=== PATIENT | male | born 1985 | race Caucasian/White ===

== ENCOUNTER 2018-06-27 17:23 | Emergency (ER) | payer OTHER ==
[2018-06-27 17:30] VITALS: BP 110/70
--- NOTE | 2018-06-27 17:39 | PHYS DOC ---
Adult General Chief Complaint Chief Complaint: FLU SYMPTOM HPI HPI Patient is a 33-year-old male who presents with complaint of body aches, chills, and headache. Patient states his symptoms that started earlier today. He also indicates that he has had some loose stools but has had no nausea or vomiting. He denies any abdominal pain. Patient states that he had taken some ibuprofen just before arrival. (DURGA WOODS Jr. DO) Review of Systems Review of Systems Constitutional: Positive chills [] HENT: Positive congestion without sore throat [] Respiratory: Denies cough or shortness of breath [] Cardiovascular: No additional information not addressed in HPI [] GI: Denies abdominal pain, nausea or vomiting. Denies diarrhea [] : Denies dysuria or hematuria [] Musculoskeletal: Complains of body aches/pain [] Integument: Denies rash or skin lesions [] Neurologic: Complains of headache without focal weakness or sensory changes [] (DURGA WOODS Jr. DO) Physical Exam Physical Exam Constitutional: Well developed, well nourished, no acute distress, non-toxic appearance. [] HENT: Normocephalic, atraumatic, bilateral external ears normal, oropharynx moist, no oral exudates, nose normal. [] Neck: Normal range of motion, no tenderness, supple. [] Cardiovascular: Regular rate and rhythm[] Lungs & Thorax: Bilateral breath sounds clear to auscultation [] Skin: Warm, dry, no erythema, no rash. [] Neurologic: Alert and oriented X 3, no focal deficits noted. [] (DURGA WOODS Jr. DO) EKG EKG [] (DURGA WOODS Jr. DO) Radiology/Procedures Radiology/Procedures [] (DURGA WOODS Jr. DO) Course & Med Decision Making Course & Med Decision Making Pertinent Labs and Imaging studies reviewed. (See chart for details) Patient moved to room upon arrival was evaluated by your medical staff after which an influenza test was obtained. Initially patient had made no mention of IV fluids and had specifically denied any nausea or vomiting but had made a comment to one of the staff members that he would like some IV fluids. I did review this with him and he states that he is feeling excessively thirsty and feels like he just not keeping enough fluids down. At this point, an IV was established and blood work was drawn. Patient given a liter of normal saline. Patient is being signed out to the oncoming ER physician at 6:00 PM, Dr. Armstrong. (DURGA WOODS Jr., DO) Course & Med Decision Making Pt. feeling better after IV fluids. Discharged home with Zofran, Tylenol and Ibuprofen. Pt. return if any concerns. Follow up with primary. Impression: 1. Viral Syndrome (DUSTIN ARMSTRONG MD) Dragon Disclaimer Dragon Disclaimer This electronic medical record was generated, in whole or in part, using a voice recognition dictation system. (DURGA WOODS Jr., DO) Departure Departure: Referrals: BERYL RIVERA (PCP) Scripts Acetaminophen (ACETAMINOPHEN) 500 Mg Tablet 1000 MG PO QIDPRN PRN for fever or discomfort, #120 TAB Prov: DUSTIN ARMSTRONG MD 06/27/18 Ibuprofen (IBUPROFEN) 800 Mg Tablet 800 MG PO tidprn PRN for fever and or discomfort, #120 TAB Prov: DUSTIN ARMSTRONG MD 06/27/18 Ondansetron Hcl (ZOFRAN) 8 Mg Tablet 8 MG PO QIDPRN PRN for NAUSEA/VOMITING, #30 BOTTLE Prov: DUSTIN ARMSTRONG MD 06/27/18 DURGA WOODS Jr., DO June 27, 2018 17:39 DUSTIN ARMSTRONG MD June 27, 2018 19:11
[2018-06-27 18:04] LABS: INFLUENZA A PATIENT NEGATIVE (NEGATIVE); INFLUENZA B PATIENT NEGATIVE (NEGATIVE)
[2018-06-27] MEDS ORDERED: IV NORMAL SALINE 1,000ML 1,000 ML IV ONE (18:15)
[2018-06-27 18:39] LABS: BASO % 0 % (0-3); EOS % 0 % (0-3); HEMATOCRIT 45.7 % (39.0-53.0); HEMOGLOBIN 16.2 g/dL (13.0-17.5); LYMPH # 0.4 x10^3/uL (1.0-4.8); LYMPH % 5 % (24-48); MEAN CORPUSCULAR HEMOGLOBIN 30 pg (25-35); MEAN CORPUSCULAR HGB CONC 36 g/dL (31-37); MEAN CORPUSCULAR VOLUME 84 fL (79-100); MONO # 0.4 x10^3/uL (0.0-1.1); MONO % 5 % (0-9); NEUT # 6.6 x10^3uL (1.8-7.7); NEUT % 89 % (31-73); PLATELET COUNT 186 x10^3/uL (140-400); RED BLOOD COUNT 5.44 x10^6/uL (4.30-5.70); RED CELL DISTRIBUTION WIDTH 12.9 % (11.5-14.5); WHITE BLOOD COUNT 7.5 x10^3/uL (4.0-11.0)
[2018-06-27 18:40] LABS: AMPHETAMINE/METHAMPHETAMINE NEG (NEG); BARBITURATES NEG (NEG); BENZODIAZEPINES NEG (NEG); CANNABINOIDS NEG (NEG); COCAINE NEG (NEG); METHADONE NEG (NEG); OPIATES NEG (NEG); PHENCYCLIDINE NEG (NEG)
[2018-06-27 18:45] LABS: CLARITY,URINE HAZY; COLOR,URINE AMBER
[2018-06-27 18:46] LABS: BACTERIA,URINE 0 /HPF (0-FEW); BILIRUBIN,URINE NEG (NEG); GLUCOSE,URINE NEG (NEG); NITRITE,URINE NEG (NEG); SQUAMOUS EPITHELIAL CELL,UR OCC /LPF; UROBILINOGEN,URINE 0.2 mg/dL (0.2 mg/dL); WBC,URINE 0 /HPF (0-4)
[2018-06-27 18:53] LABS: ALBUMIN 4.2 g/dL (3.4-5.0); ALBUMIN/GLOBULIN RATIO 1.4 (1.0-1.7); CREATININE 1.4 mg/dL (0.7-1.3); GFR 58.4; POTASSIUM 3.7 mmol/L (3.5-5.1); TOTAL BILIRUBIN 0.9 mg/dL (0.2-1.0); TOTAL PROTEIN 7.2 g/dL (6.4-8.2)
[2018-06-27 18:57] LABS: MAGNESIUM 1.7 mg/dL (1.8-2.4)
[2018-06-27] MEDS ORDERED: ONDA8TAB9 PO (19:01)
[2018-06-27] MEDS ORDERED: ACET500T68 PO (19:01)
[2018-06-27] MEDS ORDERED: IBUP800T19 PO (19:01)
== END 2018-06-27 19:05 | disposition home or self-care (01) ==
LOC: ER 17:23
DX: B34.9 Viral infection, unspecified (principal); R19.7 Diarrhea, unspecified
CPT/HCPCS: 36415; 80053; 80307; 81001; 82550; 83735; 83880; 84484; 85025; 85610; 85651; 85730; 87804; 96360; 96361; 99285-25; J7030